=== PATIENT | male | born 1975 | race Asian ===

== ENCOUNTER 2019-01-23 09:02 | Emergency (ER) | payer SELFPAY ==
[~2019-01-23] VITALS: Ht 175.3 cm; Wt 84.1 kg
--- NOTE | 2019-01-23 09:13 | NUR ---
PATIENT PRESENTS TO ED TODAY FOR FACIAL SWELLING/LAC AFTER "TRIPPING OVER SHOESTRING" AT 0700 THIS AM. ADMITS DRINKING LAST NIGHT. A+OX4. NADN. AWAITING MD ORDERS CALL LIGHT WITHIN REACH.
[2019-01-23] MEDS ORDERED: LIDOCAINE-MPF 1%, 5ML ONE (09:24)
[2019-01-23] MEDS ORDERED: DIPH,PERTUSS(ACELL),TET VAC/PF 0.5 ML IM-VACC ONE ×2 (09:42→10:00)
[2019-01-23] MEDS ORDERED: ACETAMINOPHEN 500 MG TABLET PO ONE (10:00)
[2019-01-23] MEDS ORDERED: LIDOCAINE-MPF 1%, 5ML INFIL ONE (10:00)
--- NOTE | 2019-01-23 10:00 | NUR ---
RECEIVED REPORT FROM ONELIA JOHNSON. PT TO HAVE WOUND CLEANED THEN SUTURES. CT SCAN NEEDS TO BE DONE.
--- NOTE | 2019-01-23 10:59 | NUR ---
SUTURES BEING DONE. VSS.
[2019-01-23 12:07] VITALS: BP 114/63
== END 2019-01-23 12:09 | disposition home or self-care (01) ==
LOC: ED 12:03
DX: S02.2XXA Fracture of nasal bones, initial encounter for closed fracture (principal); S01.412A Laceration without foreign body of left cheek and temporomandibular area, initial encounter; W19.XXXA Unspecified fall, initial encounter; Y93.89 Activity, other specified; Y92.89 Other specified places as the place of occurrence of the external cause; Y99.8 Other external cause status
CPT/HCPCS: 13132; 70450; 70486; 90471; 90715